=== PATIENT | female | born 1995 | race Caucasian/White ===

== ENCOUNTER 2017-03-26 09:20 | Inpatient (IN) ==
--- OUTSIDE RECORDS SUMMARY | 2017-03-26 09:34 | External Medical Summary | CCD ---
:1995 Author Name RUBA PEDERSEN Address [address], [place] [id number] Care Team Providers Name Role Phone WARD MOFFETT Attending Physician Unavailable WARD MOFFETT Er Physician 1 Unavailable Vital Signs Unknown or Not Available. Allergies Allergy Code Allergy Type Reaction Status CODEINE 2670 Drug allergy Active Procedures Unknown or Not Available. History of Immunizations Unknown or Not Available. Problems Unknown or Not Available. Results Unknown or Not Available. Active Medications Unknown or Not Available. Medications Administered During Visit Unknown or Not Available. Encounters Encounter Diagnosis Diagnosis Code Start Date Gastro-esophageal reflux K219 08/02/2015 disease without esophagitis Social History Smoking Status Code Start Date End Date Current every day [id number] smoker Patient Decision Aids Unknown or Not Available. Discharge Instructions You were admitted to [facility] on 08/02/2015 10:23 with a principal diagnosis of Gastro-esophageal reflux disease without esophagitis You were discharged from [facility] on 08/02/2015 11:18 Should you have any questions prior to discharge, please contact a member of your healthcare team. If you have left the hospital and have any questions, please contact your primary care physician. Chief Complaint and Reason For Visit Chief Complaint Date of Onset ABD PAIN Function Status Unknown or Not Available. Plan of Care Unknown or Not Available. Referral/Transition of Care Unknown or Not Available.
--- OUTSIDE RECORDS SUMMARY | 2017-03-26 09:34 | External Medical Summary | Continuity of Care Document ---
:1996 Author Organization [facility] Address [address] [place], [place] [address] Phone Care Team Providers Name Role Phone Catalina Sanchez APRN Unavailable Unavailable Allergies, Adverse Reactions, Alerts Substance Reaction Severity Status codeine Hyperactivity Unknown Active Medications Medication Instructions Dosage Effective Dates Status Comments (start - stop) 28 mg take 1 tablet by Not Available - Active iron-800 mcg oral route every tablet day Problems Condition Effective Dates (start - stop) Clinical Status Encounter for suprvsn of normal - , third trimester 33 weeks gestation of - Encounter for suprvsn of normal - , second trimester 19 weeks gestation of - Encounter for suprvsn of normal - , first trimester 9 weeks gestation of - Encounter for suprvsn of normal - , second trimester 19 weeks gestation of - Encounter for suprvsn of normal - , second trimester 27 weeks gestation of - Encounter for suprvsn of normal - , second trimester 14 weeks gestation of - Encounter for suprvsn of normal - , second trimester 23 weeks gestation of - Encounter for suprvsn of normal - , third trimester 31 weeks gestation of - Encounter for suprvsn of normal - , third trimester 35 weeks gestation of - Procedures Procedure Date OB Visit No Charge Results Test Name Date and Time Measure Units Reference Range Abnormal Flag Comments Unknown Advance Directives Directive Yes / No Effective Date File Name Unknown Encounters Encounter Practice Location Reason(s) Diagnoses Date Provider Care Team Description For Visit Members Olu [place] Encounter Joshua Referring In Womens for Fer. 700 Provider: Health PA, of normal Medical Pari [address], , [place], third [address], 700 [id number], [email or web address] [place], [facility] US weeks [facility] tel:[phone] gestation [id number], [address], [address] of [place]. [place], tel:[phone] [place], [phone] [id number]. tel:[phone] Olu [place] Encounter Joshua Referring In Womens for Fer. 700 Provider: Health PA, of normal Medical Pari [address], , [place], third [address], 700 [id number], [email or web address] [place], [facility] [place] weeks [place], [place] tel:[phone] gestation [id number], [address], [address] of [place]. [place], tel:[phone] [place], [phone] [id number]. tel:[phone] Olu [place] Encounter Joshua Referring In Womens for Fer. 700 Provider: Health PA, of normal Medical Pari [address], , [place], third [address], 700 [id number], [email or web address] Ray, Medical [place] weeks [facility] tel:[phone] gestation [id number], [address], [address] of [place]. [place], tel:[phone] [place], [phone] [id number]. tel:[phone] Olu [place] Encounter Joshua Referring In Womens for Fer. 700 Provider: Health RODRIGO, of normal Medical Pari [address], , [place], [place], second [address], 700 [id number], [email or web address] [place], Medical [place] weeks [place], [place] tel:+ gestation [phone], [address], [address] of [place]. [place], tel:[phone] [place], [phone] [id number]. tel:[phone] Olu Bell Encounter Joshua Referring In Womens for Fer. 700 Provider: Health PA, of normal Medical Pari [address], , [place], second [address], 700 [id number], [email or web address] [place], Medical [place] weeks [place], [place] tel:+ gestation [phone], [address], [address] of [place]. [place], tel:[phone] [place], [phone] [id number]. tel:[phone] Olu [place] Encounter Joshua Referring In Womens for Fer. 700 Provider: Health PA, of normal Medical Pari [address], , [place], second [address], 700 [id number], [place], Medical [place] weeks [place], [place] tel: gestation [phone], [address], [address] of [place]. [place], tel:[phone] [place], [phone] [id number]. tel:[phone] Olu Bell Encounter Joshua Referring In Womens Ultrasound for Fer. 700 Provider: Health PA, of normal Medical Pari [address], , [place], second [address], 700 [id number], [email or web address] [place], Medical [place] weeks [place], [place] tel:21 gestation [phone], [address], [address] of [place]. [place], tel:[phone] [place], [phone] [id number]. tel:[phone] Olu Bell Encounter Joshua Referring In Womens for vs -2016 Fer. 700 Provider: Health PA, of normal Medical Pari [address], , [place], second [address], 700 [id number], [email or web address] Ray, Medical [place] weeks [place], [place] tel:[phone] gestation [id number], [address], [address] of [place]. [place], tel:[phone] [place], [id number]. tel:[phone] Associates Ray Encounter Joshua Referring In Womens for suprvsn -2017 Fer. 700 Provider: Health RODRIGO, [facility] [address], , Center , [place], [place], first [address], 700 [id number], [id number] [place], [facility] weeks [place], [place] tel:[phone] gestation [id number], [address], [address] of [place]. [place], tel:[phone] [place], [phone] [id number]. tel:[phone] Olu [place] Sobbing In Womens -2016 Rob[place]. [facility] RODRIGO, 700 [address], [place], [place], [place] [id number], Drive, [address], tel:[phone] [place], [address] [place], [address], . tel:[phone] Family History Family Member Diagnosis Age At Onset Maternal Grandfather Hypertension Paternal Grandfather Colon Cancer Paternal Grandmother Colon Cancer Maternal Grandfather Colon Cancer Maternal Grandfather Thyroid Disorder Maternal Grandmother Hypertension Paternal Grandmother Ovarian Cancer Paternal Grandmother Breast Cancer Immunizations Vaccine Date Status Comments Influenza, injectable, quadrivalent, completed Source: Other Provider preservative free, 3 yrs or older Payers Payer name Insurance type Covered green party ID Authorization(s) [facility] [id number] [facility] - [id number] Medicaid Social History Type Description Quantity Date Captured Alcohol Use Details No Caffeine Use Details Unknown Tobacco Use Status Smoking Status Former smoker Vital Signs Date / Height Weight BMI Pulse Blood Temperature Respiratory Body Head BMI Time: Rate Pressure Rate Surface Circumference percentile Area 190.90 32.7 129/ lbs 6 mm[Hg] 9:13 kg/m AM eter (2) Chief Complaint And Reason For Visit Unknown Chief Complaint And Reason For Visit Reason For Referral Reason For Referral Unknown Plan Of Care Date Type Action Status Goal Tobacco cessation counseling completed Appointment Danyell Yates KEPT Appointment Danyell Yates BOOKED Appointment Danyell Yates BOOKED Appointment Danyell Yates BOOKED Future Order: Radiology Order Complete OB Ultrasound > 14 Ordered Weeks (17695) Date Type Problem Goal Intervention Status Start Date Unknown. History Of Present Illness Encounter Date Complaint History Of Present Illness This patient has no known history of present illness Functional Status Encounter Date Functional Assessment Cognitive Assessment Unknown Medications Administered Medication Instructions Dosage Effective Dates (start - stop) Status Comments Drug Treatment Unknown Instructions Date Instruction Additional Information HIV and other routine tests risk factors identified by history anticipated course of care nutrition and weight gain counseling, special diet toxoplasmosis precautions (cats / raw meat) sexual activity exercise indications for ultrasound influenza vaccine environmental / work hazards travel tobacco (ask, advise, assess, assist and arrange) use of any medications (including supplements, vitamins, herbs, OTC drugs) smoking counseling domestic violence seat belt use childbirth classes / hospital facilities hospital registration genetic testing new ob handbook Zika virus assessment & precautions
--- OUTSIDE RECORDS SUMMARY | 2017-03-26 09:35 | External Medical Summary | Continuity of Care Document ---
:1996 Author Organization [facility] Address [address] [place], [place] [id number] Phone Care Team Providers Name Role Phone Catalina Sanchez APRN Unavailable Unavailable Allergies, Adverse Reactions, Alerts Substance Reaction Severity Status codeine Hyperactivity Unknown Active Medications Medication Instructions Dosage Effective Dates Status Comments (start - stop) folic acid 400 mcg take 1 tablet by oral 0.4 MG - Active tablet route every day Problems Condition Effective Dates (start - stop) Clinical Status Encounter for suprvsn of normal - , second trimester 14 weeks gestation of - Encounter for suprvsn of normal - , first trimester 9 weeks gestation of - Procedures Procedure Date OB Visit No Charge Results Test Name Date and Time Measure Units Reference Range Abnormal Flag Comments Unknown Advance Directives Directive Yes / No Effective Date File Name Unknown Encounters Encounter Practice Location Reason(s) Diagnoses Date Provider Care Team Description For Visit Members Olu [place] Encounter Joshua Referring [facility] for suprvsn -2016 Fer. 700 Provider: RODRIGO, [address] of normal Medical [address], , [place], [place], second [address], 700 Medical [id number], [place] [email or web address] [place] [address] tel:+9 weeks [place], [address], 6790 gestation [id number], Ray [place], of [place]. [id number]. tel: tel: [phone] Olu [place] Encounter Joshua Referring [facility] for suprvsn -2017 Fre. 700 Provider: RODRIGO, [address] of [place] Medical [address], , Center , Daniel [place], [place], first [address], 700 Medical [id number], [place] trimester[address] tel:+9 weeks [place], [address], 6790 gestation [id number], [place], of [place]. [id number]. tel: tel: [phone] [facility] [place] [facility] -2016 [place]. RODRIGO [address], Medical [place], [place], [place] [id number], [place] Drive, tel:+ [address], [address] [place], [address], [place]. tel:[phone] Family History Family Member Diagnosis Age At Onset Maternal Grandfather Hypertension Paternal Grandfather Colon Cancer Paternal Grandmother Colon Cancer Maternal Grandfather Colon Cancer Maternal Grandfather Thyroid Disorder Maternal Grandmother Hypertension Paternal Grandmother Ovarian Cancer Paternal Grandmother Breast Cancer Immunizations Vaccine Date Status Comments Unknown Payers Payer name Insurance type Covered libertarian ID Authorization(s) [facility] [id number] [facility] - [id number] Medicaid Social History Type Description Quantity Date Captured Alcohol Use Details No Caffeine Use Details Unknown Tobacco Use Status Smoking Status Former smoker Vital Signs Date / Height Weight BMI Pulse Blood Temperature Respiratory Body Head BMI Time: Rate Pressure Rate Surface Circumference percentile Area 160.00 27.4 lbs 6 mm[Hg] 9:33 kg/m AM eter (2) 160.00 27.4 121 lbs 6 mm[Hg] 9:15 kg/m AM eter (2) Chief Complaint And Reason For Visit Unknown Chief Complaint And Reason For Visit Reason For Referral Reason For Referral Unknown Plan Of Care Date Type Action Status Goal Tobacco cessation counseling completed Appointment Danyell Yates BOOKED Appointment Danyell Yates BOOKED Date Type Problem Goal Intervention Status Start [...]
--- OUTSIDE RECORDS SUMMARY | 2017-03-26 09:35 | External Medical Summary | Continuity of Care Document ---
:1996 Author Organization [facility] Address [address] [place], [place] [phone] Phone Care Team Providers Name Role Phone Catalina Sanchez APRN Unavailable Unavailable Allergies, Adverse Reactions, Alerts Substance Reaction Severity Status codeine Hyperactivity Unknown Active Medications Medication Instructions Dosage Effective Dates Status Comments (start - stop) Terazol 7 0.4 % insert 1 Not Available - Active vaginal cream applicatorful by vaginal route every day for 7 days at bedtime ORAL - No Longer TABLET Active Problems Condition Effective Dates (start - stop) Clinical Status Encounter for suprvsn of normal - , first trimester 9 weeks gestation of - Procedures Procedure Date Unknown Results Test Name Date and Time Measure Units Reference Range Abnormal Flag Comments Unknown Advance Directives Directive Yes / No Effective Date File Name Unknown Encounters Encounter Practice Location Reason(s) Diagnoses Date Provider Care Team Description For Visit Members [facility] Encounter Joshua Referring [facility] Fer. 700 Provider: MADHAV WALLACE Box of normal Medical [address], , [place], first [address], 700 Medical [id number], [place] trimester[address] [place] [address] tel:[phone] weeks [place], [address], 6790 gestation [id number], GLADYS Bell, of [place]. [id number]. tel: tel: [phone] [facility] -2016 [place]. [place], [address], [place], [place], Center [id number], [place] Drive, tel:[phone] [address], [address] [place], [address], [place]. tel:[phone] [facility] [place] [facility] -2016 [place]. RODRIGO, [address], [place], [place], Center [id number], [place] Drive, tel:[phone] [address], [address] [place], [address], [place]. tel:[phone] Family History Family Member Diagnosis Age At Onset Maternal Grandfather Hypertension Paternal Grandfather Colon Cancer Paternal Grandmother Colon Cancer Maternal Grandfather Colon Cancer Maternal Grandfather Thyroid Disorder Maternal Grandmother Hypertension Paternal Grandmother Ovarian Cancer Paternal Grandmother Breast Cancer Immunizations Vaccine Date Status Comments Unknown Payers Payer name Insurance type Covered republican ID Authorization(s) [place] [id number] [facility] - [id number] Medicaid Social History Type Description Quantity Date Captured Unknown Vital Signs Date / Height Weight BMI Pulse Blood Temperature Respiratory Body Head BMI Time: Rate Pressure Rate Surface Circumference percentile Area Unknown Chief Complaint And Reason For Visit Unknown Chief Complaint And Reason For Visit Reason For Referral Reason For Referral Unknown Plan Of Care Date Type Action Status Goal Tobacco cessation counseling completed Appointment Danyell Yates BOOKED Date Type Problem [...]
--- OUTSIDE RECORDS SUMMARY | 2017-03-26 09:35 | External Medical Summary | Continuity of Care Document ---
:1996 Author Organization [facility] Address [address] [place], [place] [id number] Phone Care Team Providers Name Role Phone Catalina Sanchez APRN Unavailable Unavailable Allergies, Adverse Reactions, Alerts Substance Reaction Severity Status codeine Hyperactivity Unknown Active Medications Medication Instructions Dosage Effective Dates (start - stop) Status Comments Drug Treatment Unknown Problems Condition Effective Dates (start - stop) Clinical Status Encounter for [facility] [place] of normal - , first trimester 9 weeks gestation of - Procedures Procedure Date Unknown Results Test Name Date and Time Measure Units Reference Range Abnormal Flag Comments Unknown Advance Directives Directive Yes / No Effective Date File Name Unknown Encounters Encounter Practice Location Reason(s) Diagnoses Date Provider Care Team Description For Visit Members [facility] Ray [facility] -2017 Fer. 700 MADHAV WALLACE [address] [place], [address], [id number], Ray, tel:9 [place], 6790 [id number], [place]. tel:[phone] [facility] [place] Encounter [place] Referring [facility] Fer. 700 Provider: MADHAV WALLACE of normal Medical [address], , [place], [place], first [address], 700 Medical [id number], [place] trimester9 [address] [place] [address] tel:+9 weeks [place], [address], 6790 gestation [id number], GLADYS Bell, of [place]. [id number]. tel: tel: [phone] [facility] -2017 MADHAV [address], [place], [place], Center [id number], [place] Drive, tel:[phone] [address], [address] [place], [address], [place]. tel:[phone] Family History Family Member Diagnosis Age At Onset Maternal Grandfather Hypertension Paternal Grandfather Colon Cancer Paternal Grandmother Colon Cancer Maternal Grandfather Colon Cancer Maternal Grandfather Thyroid Disorder Maternal Grandmother Hypertension Paternal Grandmother Ovarian Cancer Paternal Grandmother Breast Cancer Immunizations Vaccine Date Status Comments Unknown Payers Payer name Insurance type Covered libertarian ID Authorization(s) [facility] BL [id number] [facility] - [id number] Medicaid Social History Type Description Quantity Date [...]
--- OUTSIDE RECORDS SUMMARY | 2017-03-26 09:35 | External Medical Summary | Continuity of Care Document ---
:1996 Author Organization [facility] [employer] [facility] Address [address] [place], [place] [phone] Phone Care Team Providers Name Role Phone [...] second trimester 23 weeks gestation of - Procedures Procedure Date Unknown Results Test Name Date and Time Measure Units Reference Range Abnormal Flag Comments Unknown Advance Directives Directive Yes / No Effective Date File Name Unknown Encounters Encounter Practice Location Reason(s) Diagnoses Date Provider Care Team Description For Visit Members Olu [place] Joshua In [address], Medical [address], [place], [address], [id number], [place], [place], tel:[phone], [address] [place]. tel:[phone] Olu [place] Encounter Joshua Referring In Womens for Fer. 700 Provider: Health PA, [facility] [address], , [place], second [address], 700 [id number], [email or web address] Ray, Medical [place] weeks [place], [place] tel:+[phone] gestation [id number], [address], [address] of [place]. [place], tel:[phone] [place], [phone] [id number]. tel:[phone] Olu [place] Encounter Josuha Referring In Womens for vs Fer. 700 Provider: Health PA, of [facility] [address], , [place], second [address], 700 [id number], [email or web address] [facility] [place] weeks [place], [place] tel:+[phone] gestation [id number], [address], [address] of [place]. [place], tel:[phone] [place], [phone] [id number]. tel:[phone] Olu [place] Encounter Joshua Referring In Womens for vs -2016 Fer. 700 Provider: Health PA, of [place] [facility] [address], , [place], second [address], 700 [id number], Ray, Medical [place] weeks [place], [place] tel:+[phone] gestation [id number], [address], [address] of [place]. [place], tel:[phone] [place], [phone] [id number]. tel:[phone] Olu [place] Encounter Sep Joshua Referring In Womens Ultrasound for Fer. 700 Provider: Health PA, [facility] Medical Pari [address], , [place], second [address], 700 [id number], [email or web address] Ray, [facility] US weeks [place], [place] tel:+[phone] gestation [id number], [address], [address] of [place]. [place], tel:[phone] [place], [address] [id number]. tel:[phone] Associates Ray Encounter Joshua Referring In Womens for Fer. 700 Provider: Aleida WALLACE, of [facility] [facility] [address], , Center [place], [place], second [address], 700 [id number], [email or web address] Ray, [facility] weeks [place], [place] tel:[phone] gestation [id number], [address], [address] of [place]. [place], tel:[phone] [place], 732[address] [id number]. tel:[phone] Olu [place] Encounter Joshua Referring In Womens for Fer. 700 Provider: Aleida WALLACE, [facility] [address], , Center [place], [place], first [address], 700 [id number], [id number] [facility] [place] [place], [place] tel:[phone] gestation [id number], [address], [address] of . Bell, tel:+[phone] [place], 63570[address] [id number]. tel:[phone] Olu [place] Sobbing In Womens -2016 [place]. Aleida WALLACE 700 [address], [place], [place], [place] [id number], Drive, [address], tel:[phone] [place], [address] [place], [address], [place]. tel:[phone] Family History Family Member Diagnosis Age At Onset Maternal Grandfather Hypertension Paternal Grandfather Colon Cancer Paternal Grandmother Colon Cancer Maternal Grandfather Colon Cancer Maternal Grandfather Thyroid Disorder Maternal Grandmother Hypertension Paternal Grandmother Ovarian Cancer Paternal Grandmother Breast Cancer Immunizations Vaccine Date Status Comments Influenza, injectable, quadrivalent, completed Source: Other Provider preservative free, 3 yrs or older Payers Payer name Insurance type Covered democrat ID Authorization(s) [facility] [id number] [facility] - [id number] Medicaid Social History Type Description Quantity Date [...] Complete OB Ultrasound > 14 Ordered Weeks (51822) Date Type Problem Goal Intervention Status Start [...]
--- OUTSIDE RECORDS SUMMARY | 2017-03-26 09:35 | External Medical Summary | Continuity of Care Document ---
:1996 Author Organization [facility] In [facility] Address [address] [place], [place] [id number] Phone Care Team Providers Name Role Phone [...] second trimester 14 weeks gestation of - Procedures Procedure Date Ultrasound exam of preg uterus, complete Results Test Name Date and Time Measure Units Reference Range Abnormal Flag Comments Unknown Advance Directives Directive Yes / No Effective Date File Name Unknown Encounters Encounter Practice Location Reason(s) Diagnoses Date Provider Care Team Description For Visit Members Associates Ray Encounter Joshua Referring In [facility] for suprvsn -2016 Fer. 700 Provider: Aleida WALLACE, of normal Medical Pari [address], , [facility], [place], second [address], 700 [id number], Jenni Bell [facility] tel:[phone] gestation [id number], [address] [address], [address] of [place]. Bell, tel:+-316 [place], [phone] [id number]. tel:[phone] Olu Bell Encounter Joshua Referring In Womens Ultrasound for Fer. 700 Provider: Aleida WALLACE, [facility] [address], , [facility], [place], second [address], 700 [id number], [email or web address] [facility] [place] weeks [place], [place] tel:+[phone] gestation [id number], [address], [address] of [place]. [place], tel:+-316 [place], [phone] [id number]. tel:[phone] Olu Bell Encounter Joshua Referring In Womens for Fer. 700 Provider: Aleida WALLACE, [facility] [address], , [facility], [place], second [address], 700 [id number], [email or web address] [facility] [place] weeks [place], [place] tel:+[phone] gestation [id number], [address], [address] of [place]. [place], tel:+-316 [place], [phone] [id number]. tel:[phone] Olu Bell Encounter Joshua Referring In Womens for Fer. 700 Provider: Aleida WALLACE, [facility] [address], , [facility], [place], first [address], 700 [id number], [id number] [facility] [place] weeks [place], [place] tel:+[phone] gestation [id number], [address], [address] of [place]. Bell, tel:[phone] [place], [phone] [id number]. tel:[phone] Olu Bell Sobbing In Womens -2016 [facility] RODRIG[facility], 700 [address], [place], [place], [place] [id number], Drive, [place] [address], tel:[phone] [place], [address] [place], [address], [place]. tel:[phone] Family History Family Member Diagnosis Age At Onset Maternal Grandfather Hypertension Paternal Grandfather Colon Cancer Paternal Grandmother Colon Cancer Maternal Grandfather Colon Cancer Maternal Grandfather Thyroid Disorder Maternal Grandmother Hypertension Paternal Grandmother Ovarian Cancer Paternal Grandmother Breast Cancer Immunizations Vaccine Date Status Comments Unknown Payers Payer name Insurance type Covered alliance party ID Authorization(s) YULIA SIMEON [id number] [facility] - [id number] Medicaid Social History Type Description Quantity Date [...] Complete OB Ultrasound > 14 Ordered Weeks (31606) Date Type Problem Goal Intervention Status Start [...]
--- OUTSIDE RECORDS SUMMARY | 2017-03-26 09:35 | External Medical Summary | Continuity of Care Document ---
:1996 Author Organization [facility] Address [address] [place], [place] [id number] Phone Care Team Providers Name Role Phone [...] Measure Units Reference Range Abnormal Flag Comments Panel Description: Glucose [Mass/volume] in Serum or Plasma --1 hour post 50 g glucose PO GLUCOSE, GESTATIONAL 99 mg/dL <140 N Test performed at [facility] SCREEN (50G)-140 10:06:00 DIAGNOSTICS [id number] [place] [address]Fknqcpqc: XAVIER FERRARO DO,MPH Panel Description: HEMOGLOBIN + HEMATOCRIT HEMOGLOBIN 10:06:00 11.7 g/dL 11.7-15.5 N HEMATOCRIT 10:06:00 34.2 % 35.0-45.0 L REPORT COMMENT:FASTING :NOTest performed at [facility] [id number] [place] [address]Rlcumzna: XAVIER FERRARO DO,MPH Advance Directives Directive Yes / No Effective Date File Name Unknown Encounters Encounter Practice Location Reason(s) Diagnoses Date Provider Care Team Description For Visit Members Olu Bell Encounter Joshua Referring In Womens for Fer. 700 Provider: Health PA, of [facility] [address], , [facility] [place], second [address], 700 [id number], [email or web address] [facility] tel:[phone] gestation [phone], [address], [address] of [place]. [place], tel:[phone] [place], [id number] [id number]. tel:[phone] Olu Bell Encounter Joshua Referring In Womens for Fer. 700 Provider: Health PA, of [facility] [address], , [facility], second [address], 700 [id number], [email or web address] [facility] [place] tel:[phone] gestation [id number], [address], [address] of [place]. [place], tel:[phone] [place], [phone] [id number]. tel:[phone] Olu Bell Encounter Joshua Referring In Womens for Fer. 700 Provider: Health PA, of [facility] [address], , [facility] [place], second [address], 700 [id number], [email or web address] [facility] US [facility] tel:+[phone] gestation [phone], [address], [address] of [place]. Bell, tel:+[phone] [place], [phone] [id number]. tel:[phone] Associates Ray Encounter Joshua Referring In Womens Ultrasound for vs Fer. 700 Provider: Aleida WALLACE, [facility] [address], , [facility], [place], second [address], 700 [id number], [email or web address] Ray, [facility] [place] weeks [place], [place] tel:+[phone] gestation [id number], [address], [address] of [place]. Bell, tel:+1-316 [place], [phone] [id number]. tel:[phone] Associates Ray Encounter Joshua Referring In Womens for vs Fer. 700 Provider: Aleida WALLACE, [facility] [address], , [facility], [place], second [address], 700 [id number], [email or web address] [facility] [place], [place] tel:+[phone] gestation [id number], [address], [address] of [place]. Bell, tel:+-316 [place], [phone] [id number]. tel:[phone] Associates Ray Encounter Joshua Referring In Womens for vs -2016 Fer. 700 Provider: Aleida WALLACE, [facility] [address], , [facility], [place], first [address], 700 [id number], [email or web address] [facility] [place], [place] tel:+[phone] gestation [id number], [address], [address] of [place]. Bell, tel:[phone] [place], [phone] [id number]. tel:[phone] Olu Bell Sobbing In Womens -2017 [facility] [place], 700 [address], [facility] [id number], Drive, [place] [address], tel:[phone] [place], [address] [place], [address], [place]. tel:[phone] Family History Family Member Diagnosis Age At Onset Maternal Grandfather Hypertension Paternal Grandfather Colon Cancer Paternal Grandmother Colon Cancer Maternal Grandfather Colon Cancer Maternal Grandfather Thyroid Disorder Maternal Grandmother Hypertension Paternal Grandmother Ovarian Cancer Paternal Grandmother Breast Cancer Immunizations Vaccine Date Status Comments Influenza, injectable, quadrivalent, completed Source: Other Provider preservative free, 3 yrs or older Payers Payer name Insurance type Covered republican ID Authorization(s) YULIA GLADYS BL [id number] [facility] - [id number] Medicaid Social History Type Description Quantity Date Captured Alcohol Use Details No Caffeine Use Details Unknown Tobacco Use Status Smoking Status Former smoker Vital Signs Date / Height Weight BMI Pulse Blood Temperature Respiratory Body Head BMI Time: Rate Pressure Rate Surface Circumference percentile Area 184.00 31.5 130/84 lbs 8 mm[Hg] 9:10 kg/m AM eter (2) Chief Complaint And Reason For Visit Unknown Chief Complaint And Reason For Visit Reason For Referral Reason For Referral Unknown Plan Of Care Date Type Action Status Goal Tobacco cessation counseling completed Appointment Danyell Yates BOOKED Appointment Danyell Yates BOOKED Appointment Danyell Yates BOOKED Appointment Danyell Yates BOOKED Appointment Danyell Yates BOOKED Appointment Danyell aYtes BOOKED Appointment Danyell Yates BOOKED Future Order: Radiology Order Complete OB Ultrasound > 14 Ordered Weeks ([id number]) Date Type Problem Goal Intervention Status Start [...]
--- OUTSIDE RECORDS SUMMARY | 2017-03-26 09:35 | External Medical Summary | Continuity of Care Document ---
:1996 Author Organization [facility] Address [address] [place], [place] [phone] Phone Care Team Providers Name Role Phone [...] 99 mg/dL <140 N Test performed at [facility] SCREEN (50G)-140 10:06:00 DIAGNOSTICS [id number] [place] [address]Ndajxphr: XAVIER FERRARO DO,MPH Panel Description: HEMOGLOBIN + HEMATOCRIT HEMOGLOBIN 10:06:00 11.7 g/dL 11.7-15.5 N HEMATOCRIT 10:06:00 34.2 % 35.0-45.0 L REPORT COMMENT:FASTING :NOTest performed at [facility] [id number] [place] [address]Uadrueys: XAVIER FERRARO DO,MPH Advance Directives Directive Yes / No Effective Date File Name Unknown Encounters Encounter Practice Location Reason(s) Diagnoses Date Provider Care Team Description For Visit Members Olu Bell Encounter Joshua Referring In Womens for Fer. 700 Provider: Health PA, of [facility] [address], , [facility] [place], second [address], 700 [id number], [email or web address] [facility] tel:[phone] gestation [id number], [address], [address] of [place]. [place], tel:+1-316 [place], [id number]. tel:[phone] Olu Bell Encounter Joshua Referring In Womens for Fer. 700 Provider: Health PA, of [facility] [address], , [facility] [place], second [address], 700 [id number], [facility] [place] tel:+[phone] gestation [id number], [address], [address] of [place]. Bell, tel:+1-316 [place], 8959[address] [id number]. tel:[phone] Olu Bell Encounter Joshua Referring In Womens for Fer. 700 Provider: Health PA, of [facility] [address], , [facility] [place], second [address], 700 [id number], [email or web address] [facility] US [facility] tel:+18890 gestation [id number], [address], [address] of [place]. Bell, tel:[phone] [place], [phone] [id number]. tel:[phone] Associates Ray Encounter Joshua Referring In Womens Ultrasound for vs Fer. 700 Provider: Aleida WALLACE, [facility] [address], , [facility], [place], second [address], 700 [id number], [email or web address] Ray, [facility] US weeks [place], [place] tel:+60711 gestation [id number], [address], [address] of [place]. Bell, tel:+1-316 [place], [phone] [id number]. tel:[phone] Associates Ray Encounter Joshua Referring In Womens for vs Fer. 700 Provider: Aleida WALLACE, [facility] [address], , [facility], [place], [place], second [address], 700 [id number], [email or web address] [facility] [place] weeks [place], [place] tel:+[phone] gestation [id number], [address], [address] of [place]. Bell, tel:+-316 [place], [phone] [id number]. tel:[phone] Associates Ray Encounter Joshua Referring In Womens for vs -2016 Fer. 700 Provider: Aleida WALLACE, [facility] [address], , [facility], [place], first [address], 700 [id number], [email or web address] [facility] [place] weeks [place], [place] tel:+[phone] gestation [id number], [address], [address] of [place]. Bell, tel:+1-316 [place], [phone] [id number]. tel:[phone] Olu Bell Sobbing In Womens -2017 [facility] [place], 700 [address], [facility] [id number], Drive, [place] [address], tel:[phone] [place], [address] [place], [address], [place]. tel:[phone] Family History Family Member Diagnosis Age At Onset Maternal Grandfather Hypertension Paternal Grandfather Colon Cancer Paternal Grandmother Colon Cancer Maternal Grandfather Colon Cancer Maternal Grandfather Thyroid Disorder Maternal Grandmother Hypertension Paternal Grandmother Ovarian Cancer Paternal Grandmother Breast Cancer Immunizations Vaccine Date Status Comments Influenza, injectable, quadrivalent, completed Source: Other Provider preservative free, 3 yrs or older Payers Payer name Insurance type Covered alliance party ID Authorization(s) YULIA GLADYS BL [id number] [facility] - [id number] Medicaid Social History Type Description Quantity Date Captured Alcohol Use Details No Caffeine Use Details Unknown Tobacco Use Status Smoking Status Former smoker Vital Signs Date / Height Weight BMI Pulse Blood Temperature Respiratory Body Head BMI Time: Rate Pressure Rate Surface Circumference percentile Area 184.00 31.5 130/ lbs 8 mm[Hg] 9:10 kg/m AM eter (2) Chief Complaint And Reason For Visit Unknown Chief Complaint And Reason For Visit Reason For Referral Reason For Referral Unknown Plan Of Care Date Type Action Status Goal Tobacco cessation counseling completed Appointment Danyell Yates BOOKED Appointment Danyell Yates BOOKED Future Order: Radiology Order Complete OB Ultrasound > 14 Ordered Weeks ([id number]) Date Type Problem Goal Intervention Status Start [...]
--- OUTSIDE RECORDS SUMMARY | 2017-03-26 09:35 | External Medical Summary | Continuity of Care Document ---
:1996 Author Organization [facility] Address [address] [place], [place] [address] Phone Care Team Providers Name Role Phone [...] third trimester 33 weeks gestation of - Procedures Procedure Date OB Visit No Charge Results Test Name Date and Time Measure Units Reference Range Abnormal Flag Comments Unknown Advance Directives Directive Yes / No Effective Date File Name Unknown Encounters Encounter Practice Location Reason(s) Diagnoses Date Provider Care Team Description For Visit Members Olu Bell Encounter Jsohua Referring In Womens for Fer. 700 Provider: Health RODRIGO, [facility] Medical Pari [address], , [facility] [place], third [address], 700 [id number], [email or web address] [facility] US weeks [place], [place] tel:+[phone] gestation [id number], [address], [address] of [place]. Bell, tel:+1-316 [place], 0438396 [id number]. tel:[phone] Olu Bell Encounter Joshua Referring In Womens for Fer. 700 Provider: Health RODRIGO, of [facility] [address], , [facility] [place], third [address], 700 [id number], [email or web address] [facility] US weeks [facility] tel:+[phone] gestation [id number], [address], [address] of [place]. Bell, tel:+1-316 [place], 2225214 [id number]. tel:[phone] Olu Bell Encounter Joshua Referring In Womens for Fer. 700 Provider: Health RODRIGO, of [facility] [address], , [facility] [place], second [address], 700 [id number], [facility] US weeks [place], [place] tel:+85986 gestation [id number], [address], [address] of [place]. Bell, tel:+1-316 [place], [phone] [id number]. tel:[phone] Olu Bell Encounter Joshua Referring In Womens for Fer. 700 Provider: Health RODRIGO, of normal Medical Pari [address], , [facility] [place], second [address], 700 [id number], [email or web address] [facility] US [facility], [place] tel:+80429 gestation [phone], [address], [address] of [place]. Bell, tel:+1-316 [place], 6[address] [id number]. tel:[phone] Associates Ray Encounter Joshua Referring In Womens for vsn -2016 Fer. 700 Provider: Health PA, of normal Medical Pari [address], , [facility] [place], second [address], 700 [id number], [email or web address] Ray, Medical [place] weeks [place], [place] tel:+21 gestation [id number], [address], [address] of [place]. Bell, tel:+1-316 [place], 4642825 [id number]. tel:[phone] Associates Ray Encounter Joshua Referring In Womens Ultrasound for vs Fer. 700 Provider: Health PA, of normal Medical Pari [address], , [facility] [place], second [address], 700 [id number], [email or web address] Ray, Medical [place] weeks [place], [place] tel: gestation [id number], [address], [address] of [place]. Bell, tel:+[phone] MD, [phone] [id number]. tel:[phone] Associates Ray Encounter Joshua Referring In Womens for suprvsn -2016 Fer. 700 Provider: Health PA, of normal Medical Pari [address], , [facility] [place], second [address], 700 [id number], [email or web address] Ray, Medical [place] weeks [place], [place] tel:+ gestation [phone], [address], [address] of [place]. Bell, tel:+1-316 MD, 8840027 [id number]. tel:[phone] Associates Ray Encounter Joshua Referring In Womens for vsn -2016 Fer. 700 Provider: Health PA, of normal Medical Pari [address], , [facility] [place], first [address], 700 [id number], [email or web address] Ray, Medical [place] weeks [place], [place] tel:+21 gestation [phone], [address], [address] of [place]. Bell, tel:+1-316 [place], 6727712 [id number]. tel:[phone] Olu Bell Sobbing In Womens -2016 [facility], 700 [address], [facility] [id number], Drive, [address], tel:[phone] [place] [address] [place], [address], [place]. tel:[phone] Family History Family Member Diagnosis Age At [...] Insurance type Covered green party ID Authorization(s) [facility] [place] BL [id number] [facility] - [id number] Medicaid Social History Type Description Quantity Date Captured Alcohol Use Details No Caffeine Use Details Unknown Tobacco Use Status Smoking Status Former smoker Vital Signs Date / Height Weight BMI Pulse Blood Temperature Respiratory Body Head BMI Time: Rate Pressure Rate Surface Circumference percentile Area 185.60 31.8 126/77 -2017 lbs 6 mm[Hg] 9:27 kg/m AM eter (2) Chief Complaint And [...] Complete OB Ultrasound > 14 Ordered Weeks ([id number]) Date Type Problem Goal Intervention Status Start [...]
--- OUTSIDE RECORDS SUMMARY | 2017-03-26 09:35 | External Medical Summary | Continuity of Care Document ---
:1996 Author Organization [facility] In [facility] Address [address] [place], [place] [phone] Phone Care Team Providers Name Role Phone [...] Members Associates Ray Encounter Joshua Referring In [facility] for suprvsn -2016 Fer. 700 Provider: Health RODRIGO, of normal Medical Pari [address], , [facility], [place], second [address], 700 [id number], [email or web address] Jenni Bell US weeks [facility] tel:[phone] gestation [phone], [address], [address] of [place]. Bell, tel:+1-316 [place], [phone] [id number]. tel:[phone] Olu Bell Encounter Joshua Referring In Womens Ultrasound for Fer. 700 Provider: Health RODRIGO, [facility] [address], , [facility], [place], second [address], 700 [id number], [email or web address] [facility] [place] weeks [place], [place] tel:+35988 gestation [id number], [address], [address] of [place]. Bell, tel:+-316 [place], [phone] [id number]. tel:[phone] Olu Bell Encounter Joshua Referring In Womens for vs Fer. 700 Provider: Aleida WALLACE, [facility] [address], , [facility], [place], second [address], 700 [id number], [email or web address] [facility] [place] weeks [place], [place] tel:+18075 gestation [id number], [address], [address] of [place]. Bell, tel:+1-316 [place], [phone] [id number]. tel:[phone] Olu Bell Encounter Joshua Referring In Womens for Fer. 700 Provider: Aleida WALLACE, [facility] [address], , [facility], [place], first [address], 700 [id number], [email or web address] [facility] [place] weeks [place], [place] tel:+12785 gestation [phone], [address], [address] of [place]. Bell, tel:+1-316 [place], 0474760 [id number]. tel:[phone] Olu Bell Sobbing In Womens -2017 [facility], 700 [address], [facility] [id number], Drive, [place] [address], tel:[phone] [place], [address] [place], [address], [place]. tel:[phone] Family History Family Member Diagnosis Age At Onset Maternal Grandfather Hypertension Paternal Grandfather Colon Cancer Paternal Grandmother Colon Cancer Maternal Grandfather Colon Cancer Maternal Grandfather Thyroid Disorder Maternal Grandmother Hypertension Paternal Grandmother Ovarian Cancer Paternal Grandmother Breast Cancer Immunizations Vaccine Date Status Comments Unknown Payers Payer name Insurance type Covered democrat ID Authorization(s) YULIA SIMEON [id number] [facility] - [id number] Medicaid Social History Type Description Quantity Date Captured Alcohol Use Details No Caffeine Use Details Unknown Tobacco Use Status Smoking Status Former smoker Vital Signs Date / Height Weight BMI Pulse Blood Temperature Respiratory Body Head BMI Time: Rate Pressure Rate Surface Circumference percentile Area 168.50 28.9 118/71 lbs 2 mm[Hg] 9:49 kg/m AM eter (2) Chief Complaint And Reason For Visit Unknown Chief Complaint And Reason For Visit Reason For Referral Reason For Referral Unknown Plan Of Care Date Type Action Status Goal Tobacco cessation counseling completed Appointment Danyell Yates BOOKED Appointment Danyell Yates BOOKED Future Order: Radiology Order Complete OB Ultrasound > 14 Ordered Weeks ([id number]) Date Type Problem Goal Intervention Status Start [...]
--- OUTSIDE RECORDS SUMMARY | 2017-03-26 09:35 | External Medical Summary | Continuity of Care Document ---
:1996 Author Organization [facility] Address [address] [place], [place] [address] Phone Care Team Providers Name Role Phone Catalina Sanchez APRN Unavailable Unavailable Allergies, Adverse Reactions, Alerts Substance Reaction Severity Status codeine Hyperactivity Unknown Active Medications Medication Instructions Dosage Effective Dates Status Comments (start - stop) Terazol 7 0.4 % insert 1 Not Available - Active vaginal cream applicatorful by vaginal route every day for 7 days at bedtime Problems Condition Effective Dates (start - stop) [...] Members Associates In Ray Encounter Joshua Referring [facility] Fer[facility] 700 Provider: MADHAV WALLACE Box of normal Medical Pari [address], , [facility], [place], first [address], 700 Medical [id number], [place] trimester9 [place] tel: weeks [place], [address], 6790 gestation [id number], Ray [place], of . [id number]. tel: tel: [phone] Associates In Ray Sobbing [facility] -2017 [facility] RODRIGO [address], Medical [place], [place], [place] [id number], [place] Drive, tel:[phone] [address], [address] [place], [address], [place]. tel:[phone] Family History Family Member Diagnosis Age At Onset Maternal Grandfather Hypertension Paternal Grandfather Colon Cancer Paternal Grandmother Colon Cancer Maternal Grandfather Colon Cancer Maternal Grandfather Thyroid Disorder Maternal Grandmother Hypertension Paternal Grandmother Ovarian Cancer Paternal Grandmother Breast Cancer Immunizations Vaccine Date Status Comments Unknown Payers Payer name Insurance type Covered republican ID Authorization(s) [facility] [id number] [facility] - [id number] Medicaid Social History Type Description Quantity Date Captured Alcohol Use Details No Caffeine Use Details soda 3-4 per month per day Tobacco Use Status Ex-cigarette smoker Smoking Status Former smoker Smoking Tobacco Use Cigarette: Age Stopped: 20, Years Used 2 Cigarette: 5 Cigarettes per day, Pack Year: 0.5 Details Vital Signs Date / Height Weight BMI [...]
--- OUTSIDE RECORDS SUMMARY | 2017-03-26 09:35 | External Medical Summary | Continuity of Care Document ---
:1995 Author Organization [facility] Address [address] [place], [place] [id number] Phone Care Team Providers Name Role Phone Catalina Sanchez APRN Unavailable Unavailable Allergies, Adverse Reactions, Alerts Substance Reaction Severity Status codeine Hyperactivity Unknown Active Medications Medication Instructions Dosage Effective Dates (start - stop) Status Comments Drug Treatment Unknown Problems Condition Effective Dates (start - stop) Clinical Status Encounter for [facility] - , first trimester 9 weeks gestation of - Procedures Procedure Date Unknown Results Test Name Date and Time Measure Units Reference Range Abnormal Flag Comments Unknown Advance Directives Directive Yes / No Effective Date File Name Unknown Encounters Encounter Practice Location Reason(s) Diagnoses Date Provider Care Team Description For Visit Members [facility] -2016 [address]. [address] MADHAV WALLACE [address] [place], [address] [address], [id number], [place], tel:9 [place], [id number], [place]. tel:[phone] [facility] [place] Encounter [place] [facility] -2017 Fer. 700 Provider: MADHAV WALLACE [facility] [address], , Center [place], [place], first [address], 700 Medical [id number], [place] trimester[address] tel:[phone] weeks [place], [place] [address], 6790 gestation [id number], [place], of [place]. [id number]. tel: tel: [phone] [facility] -2017 MADHAV [address], [place], [place], Center [id number], [place] [address], tel:[phone] [address], [address] [place], [address], [place]. tel:[phone] Family History Family Member Diagnosis Age At Onset Maternal Grandfather Hypertension Paternal Grandfather Colon Cancer Paternal Grandmother Colon Cancer Maternal Grandfather Colon Cancer Maternal Grandfather Thyroid Disorder Maternal Grandmother Hypertension Paternal Grandmother Ovarian Cancer Paternal Grandmother Breast Cancer Immunizations Vaccine Date Status Comments Unknown Payers Payer name Insurance type Covered constitution party ID Authorization(s) [facility] [id number] [facility] - [id number] Medicaid Social History Type Description Quantity Date [...]
--- OUTSIDE RECORDS SUMMARY | 2017-03-26 09:35 | External Medical Summary | Continuity of Care Document ---
:1995 Author Organization [facility] Address [address] [place], [place] [id number] Phone Care Team Providers Name Role Phone Catalina Sanchez APRN Unavailable Unavailable Allergies, Adverse Reactions, Alerts Substance Reaction Severity Status codeine Hyperactivity Unknown Active Medications Medication Instructions Dosage Effective Dates Status Comments (start - stop) Terazol 7 0.4 % insert 1 Not Available - No Longer vaginal cream applicatorful by Active vaginal route every day for 7 days at bedtime Problems Condition Effective Dates (start - stop) Clinical Status Encounter for [facility] of normal - , first trimester 9 weeks gestation of - Procedures Procedure Date Initial OB Visit No Charge - 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 Urinalysis, non-automated, w/o scope Results Test Name Date and Time Measure Units Reference Range Abnormal Flag Comments Panel Description: OBSTETRIC PANEL WHITE BLOOD CELL 7.8 Thousand/uL 3.8-10.8 N COUNT 10:00:00 RED BLOOD CELL 4.67 Million/uL 3.80-5.10 N COUNT 10:00:00 HEMOGLOBIN 13.7 g/dL 11.7-15.5 N 10:00:00 HEMATOCRIT 39.9 % 35.0-45.0 N 10:00:00 MCV 85.4 fL 80.0-100.0 N 10:00:00 MCH 29.3 pg 27.0-33.0 N 10:00:00 MCHC 34.3 g/dL 32.0-36.0 N 10:00:00 RDW 13.6 % 11.0-15.0 N 10:00:00 PLATELET COUNT 244 Thousand/uL 140-400 N 10:00:00 MPV 9.5 fL 7.5-12.5 N 10:00:00 ABSOLUTE 4641 cells/uL 9658-6557 N NEUTROPHILS 10:00:00 ABSOLUTE 2285 cells/uL 850-3900 N LYMPHOCYTES 10:00:00 ABSOLUTE 749 cells/uL 200-950 N MONOCYTES 10:00:00 ABSOLUTE 62 cells/uL 15-500 N EOSINOPHILS 10:00:00 ABSOLUTE 62 cells/uL 0-200 N BASOPHILS 10:00:00 NEUTROPHILS 59.5 % N 10:00:00 LYMPHOCYTES 29.3 % N 10:00:00 MONOCYTES 9.6 % N 10:00:00 EOSINOPHILS 0.8 % N 10:00:00 BASOPHILS 0.8 % N 10:00:00 ANTIBODY SCREEN, NO ANTIBODIES N RBC W/REFL ID, 10:00:00 DETECTED Reference range TITER AND AG No antibodies detected This assay is a screening test for the detection of red blood cell antibodies. The test is not to be used for pretransfusion screening or for the medical management of an alloimmunized . ABO GROUP O 10:00:00 RH TYPE RH(D) 10:00:00 POSITIVE RPR (DX) W/REFL NON-REACTIVE NON-REACTIV N TITER AND 10:00:00 E CONFIRMATORY TESTING HEPATITIS B NON-REACTIVE NON-REACTIV N SURFACE ANTIGEN 10:00:00 E RUBELLA ANTIBODY 2.27 index N Index (IGG) 10:00:00 Interpretation ----- <0.90 Not consistent with Immunity 0.90-0.99 Equivocal > or=1.00 Consistent with Immunity The presence of rubella IgG antibody suggests immunization or past or current infection withrubella virus.Test performed at [place] [address]Mesomls r: XAVIER FERRARO DO,MPH Panel Description: HIV 1/2 ANTIGEN/ANTIBODY,FOURTH GENERATION W/RFL HIV NON-REACTIVE NON-REACTIVE N HIV-1 antigen and HIV-1/HIV- 2 antibodies were AG/AB, 10:00:00 notdetected. There is no laboratory evidence of 4TH GEN HIVinfection. PLEASE NOTE: This information has been disclosed toyou from records whose confidentiality may beprotected by state law. If your state requires suchprotection, then the state law prohibits you frommaking any further disclosure of the informationwithout the specific written consent of the personto whom it pertains, or as otherwise permitted by law.A general authorization for the release of medical orother information is NOT sufficient for this purpose. For additional information please refer tohttp://education.Medisas/faq/TUV829(This link is being provided for informational/educational purposes only.) The performance of this assay has not been clinicallyvalidated in patients less than 2 years old. Test performed at [place] [address]Eosoyhki: XAVIER FERRARO DO,MPH Panel Description: Bacteria identified in Urine by Culture CULTURE, URINE, 11:14:00 SEE NOTE CULTURE, URINE, ROUTINE ROUTINE MICRO NUMBER: [id number] TEST STATUS: FINAL SPECIMEN SOURCE: URINE SPECIMEN QUALITY: ADEQUATE RESULT: Multiple organisms present, each less than 10,000 CFU/mL. These organisms, commonly found on external and internal genitalia, are considered to be colonizers. No further testing performed.REPORT COMMENT:RTest performed at [facility] [place] [place] [address]Dmkseywb: XAVIER FERRARO DO,MPH Panel Description: CHLAMYDIA/N. GONORRHOEAE RNA, TMA CHLAMYDIA NOT DETECTED NOT DETECTED N TRACHOMATIS RNA, 09:45:00 TMA NEISSERIA NOT DETECTED NOT DETECTED N GONORRHOEAE RNA, 09:45:00 TMA [id number] SEE NOTE This test was 09:45:00 performed using the APTIMA COMBO2 Assay([employer] The analytical performance characteristics of this assay, when used to test SurePath specimens havebeen determined by [employer]. Test performed at [facility] [id number] [place] [address]Eqdcorru: XAVIER FERRARO DO,MPH Advance Directives Directive Yes / No Effective Date File Name Unknown Encounters Encounter Practice Location Reason(s) Diagnoses Date Provider Care Team Description For Visit Members [facility] [place] Encounter [place] Referring [facility] for supr[facility] -2017 Fer. 700 Provider: RODRIGO [address] [facility] [address], , Center , [place], [place], [place], first [address], [address] Medical [id number], [place] trimester9 [facility] tel:[phone] weeks [place], [address] [address], 6790 gestation [id number], [place], [place], [place]. [id number]. tel:[phone] tel:[phone] [facility] [place] [facility] -2017 [place]. RODRIGO [address], [place], [place], [place] [id number], [place] [address], tel:[phone] [address] [place], [address], . tel:[phone] Family History Family Member Diagnosis Age At Onset Maternal Grandfather Hypertension Paternal Grandfather Colon Cancer Paternal Grandmother Colon Cancer Maternal Grandfather Colon Cancer Maternal Grandfather Thyroid Disorder Maternal Grandmother Hypertension Paternal Grandmother Ovarian Cancer Paternal Grandmother Breast Cancer Immunizations Vaccine Date Status Comments Unknown Payers Payer name Insurance type Covered alliance party ID Authorization(s) [facility] [id number] [facility] - [id number] Medicaid Social History Type Description Quantity Date Captured Alcohol Use Details No Caffeine Use Details soda 3-4 per month per day Tobacco Use Status Ex-cigarette smoker Smoking Status Former smoker Vital Signs Date / Height Weight BMI Pulse Blood Temperature Respiratory Body Head BMI Time: Rate Pressure Rate Surface Circumference percentile Area 159.60 27.3 116/80 -2017 lbs 9 mm[Hg] 10:18 kg/m AM eter (2) Chief Complaint And Reason For Visit Unknown Chief Complaint And Reason For Visit Reason For Referral Reason For Referral Unknown Plan Of Care Date Type Action Status Goal Tobacco cessation counseling completed Appointment Danylel Yates BOOKED Date Type Problem Goal Intervention [...]
[2017-03-26] MEDS ORDERED: LIDOCAINE 1% (10mg/ml) 2mL INJ PF SDV ID PRN (10:01)
[2017-03-26] MEDS ORDERED: MAG-AL + SIM ORAL LIQUID 30ml PO PRN (10:01)
[2017-03-26] MEDS ORDERED: CALCIUM CARBONATE Chewable 500mg TABLET PO PRN ×2 (10:01→15:01)
[2017-03-26] MEDS ORDERED: CARBOPROST 250 MCG/ML INJECTION IM PRN (10:01)
[2017-03-26] MEDS ORDERED: METHYLERGONOVINE 0.2 MG/ML INJECTION IM PRN (10:01)
[2017-03-26] MEDS ORDERED: ACETAMINOPHEN 500 MG TABLET PO PRN ×2 (10:01→15:01)
[2017-03-26] MEDS ORDERED: AMPICILLIN 2 GM in NS 100 ML IV ONE (10:30)
[2017-03-26] MEDS: LR 1,000 ML IV PRN ×2 (10:36→11:38)
[2017-03-26 10:46] VITALS: BMI 32.5
[2017-03-26] MEDS ORDERED: ONDANSETRON 4 MG/2 ML INJECTION IVP PRN ×3 (11:39→15:01)
[2017-03-26] MEDS ORDERED: NALOXONE 0.4 MG/ML INJECTION IVP PRN (11:39)
[2017-03-26] MEDS ORDERED: ROPIVACAINE 1% 10MG/ML INJ 200 MG, SUFentanil 50 MCG in NS 100 ML EPI PRN (11:39)
[2017-03-26] MEDS ORDERED: DiphenhydrAMINE 50 MG/ML INJECTION IVP PRN ×2 (11:39→14:05)
--- NOTE | 2017-03-26 11:49 | Anesthesia Preoperative Report ---
Anesthesia Epidural/Spinal Rec - Date and Time Date: 03/26/17 Procedure: Labor Epidural Plan: Epidural - Vital Signs Vital Signs: Temperature 97.0 F 03/26/17 10:38 Pulse Rate 91 03/26/17 10:38 Respiratory Rate 16 03/26/17 10:38 Blood Pressure 124/80 03/26/17 10:38 /Para: P:0 - Medictaions & Allergies Inpatient Medications: Current Medications Acetaminophen (Tylenol) 500 - 1,000 mg PO Q4H PRN PRN Reason: Pain Al Hydroxide/Mg Hydroxide (Maalox Plus) 30 ml PO Q3H PRN PRN Reason: Indigestion Calcium Carbonate (Tums) 500 - 1,000 mg PO Q2H PRN PRN Reason: Indigestion Carboprost Tromethamine (Hemabate) 250 mcg IM O PRN PRN Reason: .Downtime Diphenhydramine HCl (Benadryl) 25 - 50 mg IVP Q3H PRN PRN Reason: Itching Lactated Ringer's (Lactated Ringers) 1,000 mls @ 999 mls/hr IV .Q1H1M PRN Last Admin: 03/26/17 10:36 Dose: 999 mls/hr Ampicillin Sodium 1 gm/ Sodium (Chloride) 100 mls @ 200 mls/hr IV Q4H SEE Ropivacaine 200 mg/ Sufentanil Citrate 50 mcg/ Sodium Chloride 121 mls @ 0 mls/ hr EPI PRN PRN; As Directed PRN Reason: Protocol Lidocaine HCl (Xylocaine-Mpf 1% Vial) 0.2 mg ID O PRN PRN Reason: IV Start Methylergonovine Maleate (Methergine) 0.2 mg IM O PRN Misoprostol (Cytotec) 800 mcg IN ONCE PRN Naloxone HCl (Narcan) 0.1 mg IVP Q2M PRN PRN Reason: Respiratory distress Ondansetron HCl (Zofran) 4 mg IVP Q6H PRN PRN Reason: Nausea &/or vomiting Allergies/Adverse Reactions: Allergies Allergy/AdvReac Type Severity Reaction Status Date / Time codeine AdvReac Verified 03/26/17 11:48 - Home Medications Home Medications: Home Medications Medication Instructions Recorded Confirmed Type Vitamins 03/01/17 History - Medical History Respiratory: DENIES: Asthma Cardiovascular: DENIES: Angina, Hypertension Gastrointestional: Reports: Gastroesophageal Reflux Disease Renal/Endocrine: DENIES: Diabetes Mellitus Type 2 Other History: Reports: Now - Surgical History Reproductive Surgery/Treatment: DENIES: Section Anesthesia Reactions: None Hx Family Anesthesia Reaction: No History of Motion Sickness: No - Social History Smoking Status: Former smoker Second Hand Exposure: No Substance Use Type: does not use Hx Chewing Tobacco Use: No - Pertinent Findings Lab Data: CBC and BMP 03/26/17 10:17 - Physical Exam Respiratory Exam: lungs clear, bilateral breath sounds equal Cardiovascular Exam: regular rate and rhythm - Airway Assessment Mallampati Score: II TMD: 3 Fingerbreadths Neck Extension: good Overall Assessment: may be difficult mask vent, may be difficult intubation - ASA ASA Score: 2 - Discussion Discussion: Discussed risks/options/alternatives of anesthesia and questions answered. Patient consents. Nursing pain assessment noted. Anesthesia Discussion: spouse, family member Attestation Statement: Prior to the delivery of any anesthetic medication, I examined the patient, developed the plan, obtained the patient's consent and discussed the risk and benefits of the procedure with the patient/guardian.
[2017-03-26] MEDS ORDERED: CEFAZOLIN PREMIX (MC ONLY) 2 GM/50 ML BAG IV ONE (13:22)
[2017-03-26] MEDS ORDERED: CITRIC ACID/SODIUM CITRATE 30ml PO ONE (13:22)
[2017-03-26] MEDS ORDERED: FAMOTIDINE PB 20 MG/50 ML BAG IV ONE (13:22)
[2017-03-26] MEDS ORDERED: MORPHINE SULFATE PF 5mg/10ml INJ (Duramorph) ONE (13:28)
[2017-03-26] MEDS ORDERED: EPHEDRINE 50mg/ml INJECTION ONE (13:28)
[2017-03-26] MEDS ORDERED: FentaNYL 100 MCG/2 ML INJECTION ONE (13:28)
[2017-03-26] MEDS ORDERED: SALINE FLUSH 10ml SYRINGE ONE (13:30)
[2017-03-26] MEDS ORDERED: ONDANSETRON 4 MG/2 ML INJECTION ONE (13:37)
[2017-03-26] MEDS ORDERED: LIDOCAINE 2%/EPI 1:200,000 20ml SDV PF ONE (13:37)
[2017-03-26] MEDS ORDERED: OXYTOCIN BOLUS BAG 30 UNIT/500 ML ML IV SCH (14:00)
[2017-03-26] MEDS ORDERED: NALBUPHINE 10 MG/ML INJECTION IVP PRN (14:05)
[2017-03-26] MEDS ORDERED: NALOXONE 2 MG/2 ML INJECTION PFS IVP PRN (14:05)
--- NOTE | 2017-03-26 14:05 | Anesthesia Preoperative Report ---
Anesthesia Preoperative Record - Date and Time Date: 03/26/17 Preoperative Diagnosis: ob triage intolerance to labor Proposed Procedure: emergency csection NPO Since Date: 03/25/17 NPO Since Time: 23:00 Allergies/Adverse Reactions: Allergies Allergy/AdvReac Type Severity Reaction Status Date / Time codeine AdvReac Verified 03/26/17 11:48 - Vital Signs Vital Signs: Temperature 97.0 F 03/26/17 10:38 Pulse Rate 91 03/26/17 10:38 Respiratory Rate 16 03/26/17 10:38 Blood Pressure 124/80 03/26/17 10:38 Height and Weight: Height 1.68 m Weight 91.36 kg Body Mass Index 32.5 - Medications Inpatient Medications: Current Medications Acetaminophen (Tylenol) 500 - 1,000 mg PO Q4H PRN PRN Reason: Pain Al Hydroxide/Mg Hydroxide (Maalox Plus) 30 ml PO Q3H PRN PRN Reason: Indigestion Calcium Carbonate (Tums) 500 - 1,000 mg PO Q2H PRN PRN Reason: Indigestion Carboprost Tromethamine (Hemabate) 250 mcg IM O PRN PRN Reason: .Downtime Diphenhydramine HCl (Benadryl) 25 - 50 mg IVP Q3H PRN PRN Reason: Itching Lactated Ringer's (Lactated Ringers) 1,000 mls @ 999 mls/hr IV .Q1H1M PRN Last Admin: 03/26/17 11:38 Dose: 999 mls/hr Ampicillin Sodium 1 gm/ Sodium (Chloride) 100 mls @ 200 mls/hr IV Q4H SEE Ropivacaine 200 mg/ Sufentanil Citrate 50 mcg/ Sodium Chloride 121 mls @ 0 mls/ hr EPI PRN PRN; As Directed PRN Reason: Protocol Oxytocin (Pitocin Bolus Bag) 30 unit in 500 mls @ 999 mls/hr IV .Q31M SEE Stop: 03/26/17 14:30 Last Admin: 03/26/17 13:55 Dose: 999 mls/hr Lidocaine HCl (Xylocaine-Mpf 1% Vial) 0.2 mg ID O PRN PRN Reason: IV Start Methylergonovine Maleate (Methergine) 0.2 mg IM O PRN Misoprostol (Cytotec) 800 mcg ND ONCE PRN Naloxone HCl (Narcan) 0.1 mg IVP Q2M PRN PRN Reason: Respiratory distress Ondansetron HCl (Zofran) 4 mg IVP Q6H PRN PRN Reason: Nausea &/or vomiting Home Medications: Home Medications Medication Instructions Recorded Confirmed Type Vitamins 1 tab PO DAILY 03/01/17 03/26/17 History - Medical History Respiratory: DENIES: Asthma Cardiovascular: DENIES: Angina, Hypertension Gastrointestional: Reports: Gastroesophageal Reflux Disease Renal/Endocrine: DENIES: Diabetes Mellitus Type 2 Other History: Reports: Now - Surgical History Reproductive Surgery/Treatment: DENIES: Section Anesthesia Reactions: None Hx Family Anesthesia Reaction: No History of Motion Sickness: No - Social History Smoking Status: Former smoker Hx Chewing Tobacco Use: No Second Hand Exposure: No Substance Use Type: does not use - Pertinent Findings Laboratory: CBC and BMP 03/26/17 10:17 - Physical Exam Respiratory Exam: Present: lungs clear, bilateral breath sounds equal Cardiovascular Exam: Present: regular rate and rhythm - Airway Assessment Mallampati Score: II TMD: 3 Fingerbreadths Neck Extension: good Overall Assessment: may be difficult mask vent, may be difficult intubation - ASA ASA Score: 2 - Plan Regional/Trunk Block: Epidural (converted from labor epidural to surgical epidural) - Discussion Discussion: Discussed risks/options/alternatives of anesthesia and questions answered. Patient consents. Nursing pain assessment noted. Present for Discussion: spouse, family member Attestation Statement: Prior to the delivery of any anesthetic medication, I examined the patient, developed the plan, obtained the patient's consent and discussed the risk and benefits of the procedure with the patient/guardian. - Additional Information Seen by Anesthesia: Yes
[2017-03-26] MEDS ORDERED: AMPICILLIN 1 GM in NS 100 ML IV SCH (14:30)
[2017-03-26] MEDS ORDERED: OXYTOCIN DRIP 30 UNIT/500 ML ML IV SCH (15:01)
[2017-03-26] MEDS ORDERED: SALINE FLUSH 10ml SYRINGE IV PRN (15:01)
[2017-03-26] MEDS ORDERED: METOCLOPRAMIDE 10mg/2ml INJECTION IVP PRN (15:01)
[2017-03-26] MEDS ORDERED: HYDROCORTISONE 2.5% CREAM 30gm RECTALLY PRN (15:01)
[2017-03-26] MEDS ORDERED: DiphenhydrAMINE 25 MG CAPSULE PO PRN (15:01)
[2017-03-26] MEDS ORDERED: SIMETHICONE 80 MG CHEWABLE TABLET PO PRN (15:01)
[2017-03-26] MEDS: D5LR 1,000 ML IV SCH (15:08)
[2017-03-26] MEDS: IBUPROFEN 800 MG TABLET PO PRN (18:33)
[2017-03-26] MEDS: SIMETHICONE 80 MG CHEWABLE TABLET PO SCH ×2 (18:34→21:56)
--- NOTE | 2017-03-26 19:21 | Progress Note ---
OB PP Progress Note Free Text - Date Date: 03/26/17 - Progress Note Progress Note: doing well po check q&a hgb at 2000
[2017-03-26] MEDS: HYDROCODONE/APAP 5mg/325mg TABLET PO PRN (21:56)
[2017-03-27] MEDS: HYDROCODONE/APAP 5mg/325mg TABLET PO PRN ×3 (07:47→21:03)
[2017-03-27] MEDS: IBUPROFEN 800 MG TABLET PO PRN ×2 (07:47→16:15)
[2017-03-27] MEDS: D5LR 1,000 ML IV SCH (07:53)
[2017-03-27] MEDS: DOCUSATE CALCIUM 240 MG CAPSULE PO SCH (11:06)
[2017-03-27] MEDS: SIMETHICONE 80 MG CHEWABLE TABLET PO SCH ×2 (11:06→21:00)
--- NOTE | 2017-03-27 14:28 | Progress Note ---
OB PP Progress Note Free Text - Date Date: 03/27/17 - Progress Note Progress Note: no c/o vss af pt pumping hgb stable q&a-krb
--- NOTE | 2017-03-27 14:58 | Operative Note ---
DATE OF SURGERY: 03/26/2017 PREOPERATIVE DIAGNOSES 1. 21-year-old white female, G2, P0 at 40.0 weeks gestational age. 2. Spontaneous rupture of membranes. 3. Spontaneous labor. 4. Occiput posterior presentation. 5. GBS prophylaxis. 6. Nonreassuring heart tones. 7. Arrest of dilation at 9 cm. POSTOPERATIVE DIAGNOSES 1. OP presentation. 2. Female , Apgars, 3468 g (Brittni Pascal). PROCEDURE: Primary low transverse section. EBL: 800 mL. SURGEON; Fer Lewis MD STEWARDESS SUPERVISOR: Nanci House MD COMPLICATIONS: None. This is a patient of mine whose water broke around 1:30 this morning and she came in around 9:30 this morning and AmniSure confirmed rupture. She was mohinder regularly at that time and was 4 cm dilated so once she was admitted she underwent an epidural block. She made it to 9 cm dilated spontaneously and then had a 4.5 minute bradycardia that resolved. We gave it some more time and then she began having late decelerations so a section was called. She was still 9 cm and OP at that time. DESCRIPTION OF PROCEDURE After adequate epidural anesthesia, the patient was prepped and draped in the left lateral decubitus position. A Pfannenstiel skin incision was made with a sharp knife and carried down the fascia, which was incised transversely with the Hutchins scissors. The rectus fascia was bluntly and sharply dissected off the rectus muscle. The rectus muscle was divided, and the peritoneum was isolated, elevated, entered with the Metzenbaum scissors and extended cephalad and caudad. The bladder blade was then inserted. The lower vesicouterine fold of the peritoneum was isolated and incised transversely. The bladder was bluntly dissected off the lower uterine segment. The bladder blade was reinserted. Then using a sharp knife, a transverse incision was made in the lower uterine segment. This was extended with my fingers. A female infant was delivered from the OP presentation without difficulty. Infant was bulb suctioned after delivery of the head and then again after delivery of the body. Cord was doubly clamped and cut and the was received by Dr. Carlson of Pediatrics. The placenta was expressed manually and was intact. The uterus was then allowed to fall upon the external abdominal wall. The endometrial cavity was cleansed using moist lap sponges. The uterus was closed using 0-Monocryl in a running locking fashion bilaterally from the lateral aspects medially. Hemostasis was confirmed. The bladder flap was then reapproximated with the visceral peritoneum using 3-0 Vicryl in a running nonlocking fashion. The posterior cul-de-sac was cleansed of old blood clots and the tubes and ovaries were examined and found to be normal in size, shape and appearance. After hemostasis was again confirmed, the uterus was then carefully returned to the abdominal cavity. The abdomen was then closed in layers. The peritoneum was closed using 2-0 Vicryl in running nonlocking fashion. The fascia was closed using 0-Vicryl in a running nonlocking fashion bilaterally from the lateral aspects medially. Hemostasis was achieved with the subcutaneous tissue and then the skin was closed using wide katheryn in a serial fashion. The patient tolerated the procedure well and went to the recovery room in stable condition. Pad, sponge and needle counts were correct and urine postop was clear and free flowing. KEVIND
[2017-03-28] MEDS: IBUPROFEN 800 MG TABLET PO PRN ×2 (01:00→09:14)
[2017-03-28] MEDS: SIMETHICONE 80 MG CHEWABLE TABLET PO SCH ×4 (01:01→14:39)
[2017-03-28] MEDS: HYDROCODONE/APAP 5mg/325mg TABLET PO PRN ×3 (04:26→12:02)
[2017-03-28] MEDS: DOCUSATE CALCIUM 240 MG CAPSULE PO SCH (09:13)
[2017-03-28 09:57] VITALS: TEMP 97.6
--- NOTE | 2017-03-28 13:02 | Progress Note ---
OB PP Progress Note Free Text - Date Date: 03/28/17 - Progress Note Progress Note: vss af doing ok dc instructions f/u for staple removal q&a
[2017-03-28 14:28] VITALS: BP 138/87; PULSE 105; RESP 18; O2SAT 97
--- NOTE | 2017-03-28 17:19 | Anesthesia Postoperative Note ---
- Date and Time Date: 03/27/17 Time: 15:00 - Status Patient Participated in Evaluation: Patient Participated in Person Vital Signs: Temperature 97.6 F 03/28/17 09:56 Pulse Rate 105 H 03/28/17 13:45 Respiratory Rate 18 03/28/17 13:45 Blood Pressure 138/87 03/28/17 13:45 Pulse Oximetry 97 03/28/17 13:45 Respiratory Function: Airway Patent Cardiovascular Function: Regular Pulse Mental Status: Alert and Oriented Pain Intensity: 2 Hydration: Taking PO Fluids Complications During Recover: None Apparent Post Anesthesia Care Notes: full motor and sensation - Follow-Up Instructions Instructions: Per Surgeon
== END 2017-03-28 15:25 | disposition home or self-care (01) | DRG 766 ==
LOC: OBOBS 09:20 → MC 09:51
PROVIDERS: ADMIT Obstetrics & Gynecology; ATTEND Obstetrics & Gynecology